=== PATIENT | female | born 1975 | race Caucasian/White ===

== ENCOUNTER 2019-03-14 16:44 | Emergency (ER) | payer MEDICAID ==
[~2019-03-14] VITALS: Ht 162.6 cm; Wt 54.5 kg
[2019-03-14 16:58] VITALS: BP 115/74; TEMP 98.3
[2019-03-14] MEDS ORDERED: MEDROL 4MG DOSPA4 MG PO (19:13)
[2019-03-14 19:42] VITALS: PULSE 74
== END 2019-03-14 19:44 | disposition home or self-care (01) ==
LOC: COL.ER 16:44
DX: M54.12 Radiculopathy, cervical region (principal); M77.9 Enthesopathy, unspecified

== ENCOUNTER → 2019-03-31 | Outpatient (CLI) | payer MEDICAID ==
[~2019-03-31] MED LIST: MEDROL 4MG DOSPA4 MG PO
== END ==
LOC: COL.RAD 08:28
DX: M50.10 Cervical disc disorder with radiculopathy, unspecified cervical region (principal)

== ENCOUNTER → 2019-05-13 | Outpatient (CLI) | payer MEDICAID | LOC: COL.RAD 07:30 | DX: M54.2 Cervicalgia (principal); Z86.79 Personal history of other diseases of the circulatory system ==

== ENCOUNTER → 2020-07-12 | Outpatient (CLI) | payer MEDICAID | LOC: COL.RAD 08:35 | DX: M67.814 Other specified disorders of tendon, left shoulder (principal); M75.52 Bursitis of left shoulder | CPT/HCPCS: A9585; Q9967 ==

== ENCOUNTER → 2023-10-01 | Outpatient (CLI) | payer OTHER ==
[~2023-10-01] MED LIST changes: +Iohexol 300 - 10 ML VIAL IV ONE; +Triamcinolone 40 MG/ML 1 ML VIAL IJ ONE
== END ==
LOC: COL.RAD 09:26
DX: M25.551 Pain in right hip (principal)
CPT/HCPCS: J0665; J3301; Q9967